=== PATIENT | female | born 1960 | race Hispanic/Latino ===

== ENCOUNTER 2024-09-06 12:26 | Emergency (ER) | payer MEDICAID ==
[~2024-09-06] VITALS: Ht 157.5 cm; Wt 140.6 kg
[2024-09-06] MEDS ORDERED: GLIPIZIDE ER10 MG PO (12:46)
[2024-09-06] MEDS ORDERED: METFORMIN HCL500 M2 PO (12:46)
[2024-09-06] MEDS ORDERED: COZAAR25 MG PO (12:47)
[2024-09-06] MEDS ORDERED: VENTOLIN HFA18 GM (12:48)
[2024-09-06] MEDS ORDERED: EZALLOR SPRINKL20 MG PO (12:48)
[2024-09-06] MEDS ORDERED: BUPROPION HCL75 MG PO (12:48)
[2024-09-06 13:59] VITALS: BP 136/64
== END 2024-09-06 14:02 | disposition home or self-care (01) ==
LOC: ED 12:26
DX: S60.221A Contusion of right hand, initial encounter (principal); I10 Essential (primary) hypertension; E11.9 Type 2 diabetes mellitus without complications; J45.909 Unspecified asthma, uncomplicated; Z88.8 Allergy status to other drugs, medicaments and biological substances; Z79.84 Long term (current) use of oral hypoglycemic drugs; Z79.899 Other long term (current) drug therapy; W18.09XA Striking against other object with subsequent fall, initial encounter
CPT/HCPCS: 73130; 99283